=== PATIENT | male | born 1980 | race Asian ===

== ENCOUNTER 2018-03-21 16:20 | Emergency (ER) | payer OTHER ==
[2018-03-21] MEDS ORDERED: LORazepam 2 MG/ML VIAL IVP STA (16:42)
[2018-03-21] MEDS ORDERED: SODIUM CHLORIDE 0.9% 1,000 ML IV ONE (16:42)
[2018-03-21] MEDS ORDERED: ONDANSETRON 4 MG/2 ML VIAL IVP STA (16:45)
--- NOTE | 2018-03-21 16:47 | ED Physician Documentation ---
History of Present Illness - Stated complaint Stated Complaint: SWEATING/YELLOW COLORED - Chief complaint Chief Complaint: General - History obtained from History obtained from: Patient, Family - History of Present Illness Timing: Today (He went to marijuana dispensary and smoked a joint. It was the first time since high school. Shortly thereafter he started to feel weak and dizzy and felt like he was paralyzed and out of his own body. He has no headache. This is never happened before but he has not smoked weed in a long time.) Review of Systems Ten Systems: 10 systems reviewed and negative Constitutional: denies: Fever, Chills Cardiac: denies: Chest pain / pressure, Palpitations Respiratory: denies: Dyspnea, Cough GI: denies: Abdominal Pain PD PAST MEDICAL HISTORY - Present Medications Home Medications: Ambulatory Orders Medication Instructions Recorded Confirmed No Known Home Medications [No 03/21/18 03/21/18 Known Home Medications] - Allergies Allergies/Adverse Reactions: Allergies Allergy/AdvReac Type Severity Reaction Status Date / Time No Known Drug Allergies Allergy Verified 03/21/18 16:40 PD ED PE NORMAL - Vitals Vital signs reviewed: Yes - General General: Alert and oriented X 3, No acute distress, Other (He is keeping his eyes closed and refuses to open them. He does follow commands. 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.) - HEENT HEENT: PERRL, EOMI - Neck Neck: Supple, no meningeal sign, No bony TTP - Cardiac Cardiac: RRR, No murmur - Respiratory Respiratory: No respiratory distress, Clear bilaterally - Abdomen Abdomen: Soft, Non tender - Neuro Neuro: Alert and oriented X 3, Normal speech Eye Opening: Spontaneous Motor: Obeys Commands Verbal: Oriented GCS Score: 15 Results - Vitals Vitals: Vital Signs - 24 hr 03/21/18 03/21/18 03/21/18 16:36 17:14 17:52 Temperature Heart Rate 119 H 109 H 118 H Respiratory 20 16 20 Rate Blood Pressure 127/78 133/75 H 123/64 O2 Saturation 95 94 97 03/21/18 03/21/18 03/21/18 18:00 18:06 18:51 Temperature Heart Rate 111 H Respiratory 15 Rate Blood Pressure 111/66 O2 Saturation 85 L 93 97 03/21/18 03/21/18 03/21/18 19:29 19:31 20:36 Temperature 36.4 C L Heart Rate 109 H 102 H Respiratory 14 16 Rate Blood Pressure 110/62 114/61 O2 Saturation 94 97 Oxygen O2 Source Room air - Labs Labs: Laboratory Tests 03/21/18 03/21/18 03/21/18 16:54 16:54 18:47 WBC 13.2 H RBC 5.26 Hgb 15.0 Hct 44.3 MCV 84.3 MCH 28.5 MCHC 33.8 RDW 13.4 Plt Count 360 MPV 8.3 Neut # (Auto) Not Reportable Lymph # (Auto) Not Reportable [place] # (Auto) Not Reportable Eos # (Auto) Not Reportable Baso # (Auto) Not Reportable Absolute Nucleated RBC Not Reportable Total Counted 100 Band Neuts % (Manual) 3 Abnorm Lymph % (Manual) 0 Nucleated RBC % Not Reportable Neutrophils # (Manual) 7.9 H Lymphocytes # (Manual) 4.5 H Monocytes # (Manual) 0.4 Eosinophils # (Manual) 0.4 Basophils # (Manual) 0.0 Differential Comment MANUAL DIFFERENTIAL Manual Slide Review Indicated WBC Morphology NORMAL APPEARANCE Platelet Estimate NORMAL (130-450,000) Platelet Morphology NORMAL APPEARANCE RBC Morph Micro Appear NORMAL APPEARANCE Sodium 138 Potassium 2.9 L Chloride 103 Carbon Dioxide 26 Anion Gap 9.0 BUN 15 Creatinine 1.1 Estimated GFR (MDRD) 76 L Glucose 152 H Calcium 8.3 L Total Bilirubin 0.6 AST 31 ALT 37 Alkaline Phosphatase 73 Total Protein 7.5 Albumin 3.9 Globulin 3.6 Albumin/Globulin Ratio 1.1 Lipase 33 Urine Opiates Screen NEGATIVE Ur Oxycodone Screen NEGATIVE Urine Methadone Screen NEGATIVE Ur Propoxyphene Screen NEGATIVE Ur Barbiturates Screen NEGATIVE Ur Tricyclics Screen NEGATIVE Ur Phencyclidine Scrn NEGATIVE Ur Amphetamine Screen NEGATIVE U Methamphetamines Scrn NEGATIVE U Benzodiazepines Scrn NEGATIVE Urine Cocaine Screen NEGATIVE U Cannabinoids Screen POSITIVE H Ethyl Alcohol < 5.0 PD MEDICAL DECISION MAKING - ED course ED course: 37-year-old gentleman with what appears to be a bad trip. He was also found to be hypokalemic and after time and medications and antiemetics and IV fluid and potassium replacement he was basically back to normal without specific complaints and he does not plan to use marijuana again. - Sepsis Event Vital Signs: Vital Signs - 24 hr 03/21/18 03/21/18 03/21/18 16:36 17:14 17:52 Temperature Heart Rate 119 H 109 H 118 H Respiratory 20 16 20 Rate Blood Pressure 127/78 133/75 H 123/64 O2 Saturation 95 94 97 03/21/18 03/21/18 03/21/18 18:00 18:06 18:51 Temperature Heart Rate 111 H Respiratory 15 Rate Blood Pressure 111/66 O2 Saturation 85 L 93 97 03/21/18 03/21/18 03/21/18 19:29 19:31 20:36 Temperature 36.4 C L Heart Rate 109 H 102 H Respiratory 14 16 Rate Blood Pressure 110/62 114/61 O2 Saturation 94 97 Oxygen O2 Source Room air Departure - Departure Disposition: 01 Home, Self Care Clinical Impression: Muscle weakness, Hypokalemia Accidental marijuana overdose Qualifiers: Encounter type: initial encounter Qualified Code(s): T40.7X1A - Poisoning by cannabis (derivatives), accidental (unintentional), initial encounter Condition: Good Record reviewed to determine appropriate education?: Yes Instructions: ED Marijuana Abuse Comments: Call your doctor to arrange a follow-up appointment, make the next available appointment. In the interim, return anytime if worse or if new symptoms develop. Discharge Date/Time: 03/21/18 20:37
[2018-03-21 17:02] LABS: BASOPHILS % (AUTO) 0.7 %; EOSINOPHILS % (AUTO) 2.2 %; LYMPHOCYTES % (AUTO) 41.8 %; MEAN CORPUSCULAR HEMOGLOBIN 28.5 pg (27.0-31.0); MEAN CORPUSCULAR HGB CONC 33.8 g/dL (32.0-36.0); MEAN CORPUSCULAR VOLUME 84.3 fL (80.0-94.0); MEAN PLATELET VOLUME 8.3 fL (7.4-11.4); NEUTROPHILS % (AUTO) 50.3 %; PLT - PLATELET COUNT 360 10^3/uL (130-450); RED BLOOD COUNT 5.26 10^6/uL (4.70-6.10); RED CELL DISTRIBUTION WIDTH 13.4 % (12.0-15.0); WHITE BLOOD COUNT 13.2 x10^3/uL (4.8-10.8)
[2018-03-21 17:05] LABS: ABNORMAL LYMPHS % (MANUAL) 0 %
[2018-03-21 17:15] LABS: ALBUMIN 3.9 g/dL (3.2-5.5); ALBUMIN/GLOBULIN RATIO 1.1 (1.0-2.2); ALKALINE PHOSPHATASE 73 IU/L (42-121); ALT ALANINE AMINOTRANSFERASE 37 IU/L (10-60); AST ASPARTATE AMINOTRANSFERASE 31 IU/L (10-42); BILIRUBIN,TOTAL 0.6 mg/dL (0.2-1.0); BUN - BLOOD UREA NITROGEN 15 mg/dL (6-20); CALCIUM 8.3 mg/dL (8.5-10.3); CARBON DIOXIDE - CO2 26 mmol/L (21-32); CHLORIDE 103 mmol/L (101-111); CREATININE 1.1 mg/dL (0.6-1.2); GFR - MDRD 76 (>89); GLUCOSE 152 mg/dL (70-100); LIPASE 33 U/L (22-51); SODIUM 138 mmol/L (135-145); TOTAL PROTEIN 7.5 g/dL (6.7-8.2)
[2018-03-21] MEDS ORDERED: POTASSIUM BICARB 25 MEQ TABLET PO STA (17:29)
[2018-03-21] MEDS ORDERED: POTASSIUM CHLOR 10 MEQ/100 ML 10 MEQ/100 ML BAG IV ONE ×2 (17:38)
[2018-03-21] MEDS ORDERED: METOCLOPRAMIDE 10 MG/2 ML VIAL IVP STA (17:38)
[2018-03-21 17:44] LABS: BAND NEUTROPHILS % (MANUAL) 3 %; DIFFERENTIAL COMMENT MANUAL DIFFERENTIAL; EOSINOPHILS # (MANUAL) 0.4 10^3/uL (0-0.7); LYMPHOCYTES # (MANUAL) 4.5 10^3/uL (1.5-3.5); LYMPHOCYTES % (MANUAL) 34 %; MONOCYTES # (MANUAL) 0.4 10^3/uL (0.0-1.0); NEUTROPHILS # (MANUAL) 7.9 10^3/uL (1.5-6.6); NEUTROPHILS % (MANUAL) 57 %; PLATELET ESTIMATE, MANUAL NORMAL (130-450,000) (NORMAL); PLATELET MORPHOLOGY NORMAL APPEARANCE (NORMAL); RBC MORPHOLOGY (MULTIPLE) NORMAL APPEARANCE (NORMAL)
[2018-03-21 18:48] LABS: MUDS CUTOFF CONCENTRATIONS CUTOFF CONC BELOW:
[2018-03-21 19:06] LABS: AMPHETAMINE SCREEN,URINE NEGATIVE (NEGATIVE); BENZODIAZEPINES SCREEN, URINE NEGATIVE (NEGATIVE); COCAINE SCREEN URINE NEGATIVE (NEGATIVE); METHADONE SCREEN, URINE NEGATIVE (NEGATIVE); METHAMPHETAMINES SCREEN, URINE NEGATIVE (NEGATIVE); OPIATE SCREEN, URINE NEGATIVE (NEGATIVE); OXYCODONE SCREEN, URINE NEGATIVE (NEGATIVE); PROPOXYPHENE SCREEN, URINE NEGATIVE (NEGATIVE); TRICYCLIC ANTIDEPRESSANT,URINE NEGATIVE (NEGATIVE)
[2018-03-21 20:37] VITALS: BP 114/61
== END 2018-03-21 20:37 | disposition home or self-care (01) ==
LOC: ED 16:20
DX: T40.7X1A Poisoning by cannabis (derivatives), accidental (unintentional), initial encounter (principal); R53.1 Weakness; E87.6 Hypokalemia
CPT/HCPCS: 36415; 80053; 80306; 80320; 83690; 85025; 96361; 96365; 96366; 96375; 99284; A9270; J2060; J2765